=== PATIENT | female | born 1965 | race Two or more races ===

== ENCOUNTER 2021-11-07 18:59 | Emergency (ER) | payer OTHER ==
[~2021-11-07] VITALS: Ht 152.4 cm; Wt 68.0 kg
[2021-11-07] MEDS ORDERED: ACETAMINOPHEN 500 MG TAB PO ONE (21:15)
[2021-11-07] MEDS ORDERED: METHOCARBAMOL 500 MG TAB PO ONE (21:15)
[2021-11-07 23:52] VITALS: BP 134/85
== END 2021-11-07 23:56 | disposition home or self-care (01) ==
LOC: EDBD 18:59 → ER 18:59
DX: M79.10 Myalgia, unspecified site (principal); R51.9 Headache, unspecified; I10 Essential (primary) hypertension; V89.2XXA Person injured in unspecified motor-vehicle accident, traffic, initial encounter; Y93.89 Activity, other specified; Y92.89 Other specified places as the place of occurrence of the external cause; Y99.8 Other external cause status
CPT/HCPCS: 70450; 76775